=== PATIENT | male | born 1950 | race Caucasian/White ===

== ENCOUNTER 2017-05-22 07:44 | Inpatient (IN) | payer MEDICARE, OTHER ==
[2017-05-20 16:44] LABS: BASOPHILS % (AUTO) 0.6 % (0-1); EOSINOPHILS # (AUTO) 0.2 X10'3 (0-0.9); EOSINOPHILS % (AUTO) 2.2 % (0-6); LYMPHOCYTES # (AUTO) 2.1 X10'3 (1.1-4.8); LYMPHOCYTES % (AUTO) 29.1 % (21-51); MEAN CORPUSCULAR HEMOGLOBIN 31.9 PG (27.0-31.0); MEAN CORPUSCULAR HGB CONC 34.1 % (33.0-36.5); MEAN CORPUSCULAR VOLUME 93.7 FL (78-98); MEAN PLATELET VOLUME 8.1 FL (7.4-10.4); MONOCYTES # (AUTO) 0.6 X10'3 (0-0.9); NEUTROPHILS # (AUTO) 4.3 X10'3 (1.8-7.7); NEUTROPHILS % (AUTO) 59.1 % (42-75); PRE OP HEMATOCRIT 39.9 % (42.0-52.0); PRE OP HEMOGLOBIN 13.6 g/dL (14.0-17.9); PRE OP PLATELET COUNT 203 X10'3 (140-440); RED BLOOD COUNT 4.26 X10'6 (4.70-6.10); RED CELL DISTRIBUTION WIDTH 14.3 % (11.5-14.5)
[2017-05-20 16:53] LABS: HEMOGLOBIN A1C 5.7 % (4.5-6.2)
[2017-05-20 16:55] LABS: PRE OP INR 0.9 INR; PRE OP PROTIME 9.4 SECONDS (9.0-12.0)
[2017-05-20 17:05] LABS: ALBUMIN 3.8 G/DL (3.4-5.0); ALBUMIN/GLOBULIN RATIO 1.1 (1.1-1.5); ALKALINE PHOSPHATASE 76 IU/L (46-116); BLOOD UREA NITROGEN 21 MG/DL (7-18); BUN/CREATININE RATIO 17.5 (5.4-32.0); CALCIUM 9.1 MG/DL (8.5-10.1); CHLORIDE 107 MMOL/L (99-107); PRE OP ALT 27 U/L (30-65); PRE OP ANION GAP 6 (8-16); PRE OP AST 12 U/L (10-37); PRE OP BILIRUB, TOTAL 0.4 MG/DL (0.0-1.0); PRE OP GLUCOSE 93 MG/DL (70-104); PRE OP POTASSIUM 4.1 MMOL/L (3.4-5.1); PRE OP SODIUM 140 MMOL/L (135-145); TOTAL CARBON DIOXIDE 26.7 MMOL/L (24-32); TOTAL PROTEIN 7.2 G/DL (6.4-8.2); eGFR 60 ML/MIN
[2017-05-22] VITALS (18 sets, daily range): BP systolic 121–216; BP diastolic 70–132
[~2017-05-22] VITALS: Ht 180.3 cm; Wt 126.6 kg
[~2017-05-22 07:44] MED LIST: ATOR40TA PO; CITA40TA11 PO; DOCUMENT DATE & TIME OF BETA-BLOCKER PO ONE; LABE100T PO; LORA1TAB PO; METF750T2 PO; NORMAL SALINE IV ONE; TRAM50TA2 PO; TRANEXAMIC ACID IV ONE; VANCOMYCIN INJ 1000 MG in NORMAL SALINE 250ml IV.SOLN IV ONE; albuterol 2.5 MG/3 ML nebule NEB ONE; ceFAZolin 2gm in dextrose, iso 100 ML IV ONE; famotidine 20mg tablet PO ONE; ringers solution, lacted 1,000 ML IV SCH
[2017-05-22] MEDS ORDERED: ROPIVAcaine 0.5% (5mg/ml) 30ml vial ONE ×2 (08:33→09:51)
[2017-05-22] MEDS ORDERED: vancomycin 1,000mg inj ONE (08:33)
[2017-05-22] MEDS ORDERED: ketorolac trometh. 30mg/ml inj. ONE (08:33)
[2017-05-22] MEDS ORDERED: sevoflurane 250ml liquid IH ONE (10:08)
[2017-05-22] MEDS ORDERED: midazolam 2 mg/2 ml injection ONE ×3 (10:13→10:18)
[2017-05-22] MEDS ORDERED: fentaNYL/PF 50MCG/1 ML 2ML syringe ONE (10:14)
[2017-05-22] MEDS ORDERED: cloNIDine hcl/PF 100mcg/ml inj ONE (10:19)
[2017-05-22] MEDS ORDERED: ringers solution, lacted 1,000 ML IV SCH (11:23)
[2017-05-22] MEDS ORDERED: meperidine/PF 25mg/ml syringe IV PRN ×3 (11:25)
[2017-05-22] MEDS ORDERED: proCHLORperazine 10 MG/2 ml inj IV PRN (11:25)
[2017-05-22] MEDS ORDERED: ondansetron/PF 4mg/2ml inj IV PRN ×2 (11:25→12:50)
[2017-05-22] MEDS ORDERED: labetalol 5mg/ml 20ml inj. IV PRN (11:25)
[2017-05-22] MEDS ORDERED: neostigmine methylsulfate 1 MG/ML 10ml vial ONE (12:20)
[2017-05-22] MEDS ORDERED: propofol inj 20 ML IV ONE (12:20)
[2017-05-22] MEDS ORDERED: glycopyrrolate 0.2mg/ml inj ONE (12:20)
[2017-05-22] MEDS ORDERED: rocuronium 10mg/ml inj IV ONE (12:20)
[2017-05-22] MEDS ORDERED: oxyCODONE IR 5mg (immed. release) tablet PO PRN (12:50)
[2017-05-22] MEDS ORDERED: HYDROmorphone 1 mg/ml syringe IV PRN ×2 (12:50)
[2017-05-22] MEDS ORDERED: bisacodyl 10mg suppository rectal RC PRN (12:50)
[2017-05-22] MEDS ORDERED: magnesium hydroxide 30ml (MOM) UD suspension PO PRN (12:50)
[2017-05-22] MEDS ORDERED: acetaminophen 325mg tablet PO PRN (12:50)
[2017-05-22] MEDS ORDERED: diphenhydrAMINE 25mg capsule PO PRN ×2 (12:50)
[2017-05-22] MEDS ORDERED: acetaminophen 325mg tablet PO SCH (14:00)
[2017-05-22] MEDS: potassium cl 20mEq in 1/2 NS 1,000 ML IV SCH (14:04)
[2017-05-22] MEDS: ketorolac tromethamine 15mg/ml inj. IV SCH ×2 (15:06→19:33)
[2017-05-22] MEDS: cefazolin 1gm/NS 100mL 100 ML IV SCH ×2 (15:06→23:41)
[2017-05-22] MEDS: gabapentin 300mg capsule PO SCH ×2 (15:07→23:40)
[2017-05-22] MEDS: traMADol 50MG tablet PO SCH (19:33)
[2017-05-22] MEDS: metFORMIN 500mg tablet PO SCH (19:33)
[2017-05-22] MEDS: LORazepam 1 MG tablet PO PRN (19:34)
[2017-05-22] MEDS ORDERED: vancomycin/NS 1 GM ADD-VANTAGE 250 ML IV SCH (20:00)
[2017-05-22] MEDS ORDERED: sennosides 8.6mg tablet PO SCH (21:00)
[2017-05-22] MEDS ORDERED: atorvastatin 20mg tablet PO SCH (21:00)
[2017-05-23] MEDS: potassium cl 20mEq in 1/2 NS 1,000 ML IV SCH ×2 (00:30→06:36)
[2017-05-23] MEDS: oxyCODONE IR 5mg (immed. release) tablet PO PRN ×2 (00:56→05:59)
[2017-05-23 02:00] VITALS: BP 143/87
[2017-05-23] MEDS: ketorolac tromethamine 15mg/ml inj. IV SCH ×2 (02:00→07:36)
[2017-05-23 06:00] VITALS: BP 143/93
[2017-05-23] MEDS: LORazepam 1 MG tablet PO PRN (06:00)
[2017-05-23 06:19] LABS: BASOPHILS % (AUTO) 0.4 % (0-1); EOSINOPHILS # (AUTO) 0.1 X10'3 (0-0.9); EOSINOPHILS % (AUTO) 1.9 % (0-6); HEMATOCRIT 35.1 % (42.0-52.0); HEMOGLOBIN 11.8 g/dl (14.0-17.9); LYMPHOCYTES # (AUTO) 1.2 X10'3 (1.1-4.8); LYMPHOCYTES % (AUTO) 20.4 % (21-51); MEAN CORPUSCULAR HEMOGLOBIN 31.5 PG (27.0-31.0); MEAN CORPUSCULAR HGB CONC 33.5 % (33.0-36.5); MEAN CORPUSCULAR VOLUME 94.2 FL (78-98); MEAN PLATELET VOLUME 8.5 FL (7.4-10.4); MONOCYTES # (AUTO) 0.6 X10'3 (0-0.9); MONOCYTES % (AUTO) 10.6 % (2-12); NEUTROPHILS # (AUTO) 3.8 X10'3 (1.8-7.7); NEUTROPHILS % (AUTO) 66.7 % (42-75); PLATELET COUNT 139 X10'3 (140-440); RED BLOOD COUNT 3.73 X10'6 (4.70-6.10); RED CELL DISTRIBUTION WIDTH 14.3 % (11.5-14.5); WHITE BLOOD COUNT 5.7 X10'3 (4.5-11.0)
[2017-05-23 06:46] LABS: ANION GAP 7 (8-16); CHLORIDE 105 MMOL/L (99-107); POTASSIUM 4.4 MMOL/L (3.5-5.1); SODIUM 138 MMOL/L (135-145)
[2017-05-23] MEDS: metFORMIN 500mg tablet PO SCH (07:36)
[2017-05-23] MEDS: gabapentin 300mg capsule PO SCH (07:36)
[2017-05-23] MEDS: traMADol 50MG tablet PO SCH (07:37)
[2017-05-23] MEDS ORDERED: citalopram 20mg tablet PO SCH (08:00)
[2017-05-23] MEDS ORDERED: labetalol 100mg tablet PO SCH (08:00)
[2017-05-23] MEDS ORDERED: aspirin 325mg tablet PO SCH (08:30)
[2017-05-23 10:28] VITALS: BP 125/77
[2017-05-23] MEDS ORDERED: ASPI-1 PO (11:42)
[2017-05-24] MEDS ORDERED: celeCOXIB 100mg capsule PO SCH (08:00)
[2017-05-24] MEDS ORDERED: acetaminophen 325mg tablet PO PRN (12:50)
== END 2017-05-23 12:25 | disposition home or self-care (01) | DRG 483 ==
LOC: PAS IN 07:44 → EDSTATUS 09:45 → ORTHO 4S 13:57
PROVIDERS: ADMIT Orthopaedic Surgery; ATTEND Orthopaedic Surgery
PROC: 0LS30ZZ Reposition Right Upper Arm Tendon, Open Approach (ICD-10-PCS; 2017-05-22)
PROC: 3E0T3BZ Introduction of Anesthetic Agent into Peripheral Nerves and Plexi, Percutaneous Approach (ICD-10-PCS; 2017-05-22)
PROC: 0RRJ00Z Replacement of Right Shoulder Joint with Reverse Ball and Socket Synthetic Substitute, Open Approach (ICD-10-PCS; principal; 2017-05-22 10:08)
DX: M19.011 Primary osteoarthritis, right shoulder (principal); D62 Acute posthemorrhagic anemia; E11.9 Type 2 diabetes mellitus without complications; E78.5 Hyperlipidemia, unspecified; E66.9 Obesity, unspecified; M75.41 Impingement syndrome of right shoulder; M75.21 Bicipital tendinitis, right shoulder; M54.40 Lumbago with sciatica, unspecified side; F32.9 Major depressive disorder, single episode, unspecified; F41.9 Anxiety disorder, unspecified; I10 Essential (primary) hypertension; M65.811 Other synovitis and tenosynovitis, right shoulder; M75.121 Complete rotator cuff tear or rupture of right shoulder, not specified as traumatic; F17.210 Nicotine dependence, cigarettes, uncomplicated; Z79.899 Other long term (current) drug therapy; Z79.84 Long term (current) use of oral hypoglycemic drugs; Z68.38 Body mass index [BMI] 38.0-38.9, adult
CPT/HCPCS: 36415; 71046; 80051; 80053; 82948; 83036; 85025; 85610; 85730; 87070; 97110; 97116; 97162; 97530; A4565; A7000; J0690; J0735; J1885; J2175; J2250; J2270; J2704; J2710; J2795; J3010; J3370; J3490; J7030; J7120

== ENCOUNTER 2021-09-11 06:58 | Day surgery (SDC) | payer MEDICARE, OTHER ==
[2021-09-11] VITALS (11 sets, daily range): BP systolic 122–160; BP diastolic 83–100
[~2021-09-11] VITALS: Ht 177.8 cm; Wt 123.6 kg
[~2021-09-11 06:58] MED LIST changes: +ASPI-1 PO; -CITA40TA11 PO; +CITA40TA32 PO; -DOCUMENT DATE & TIME OF BETA-BLOCKER PO ONE; +FERR325T28 PO; -LABE100T PO; +LABE100T5 PO; -METF750T2 PO; +METF750T46 PO; -NORMAL SALINE IV ONE; -TRANEXAMIC ACID IV ONE; -VANCOMYCIN INJ 1000 MG in NORMAL SALINE 250ml IV.SOLN IV ONE; -albuterol 2.5 MG/3 ML nebule NEB ONE; -ceFAZolin 2gm in dextrose, iso 100 ML IV ONE; -famotidine 20mg tablet PO ONE; -ringers solution, lacted 1,000 ML IV SCH
[2021-09-11] MEDS ORDERED: DEXTROSE 15 GM of carb/4 tabs (each vial/BOTTLE has 4 tablets) PO PRN ×2 (07:35)
[2021-09-11] MEDS ORDERED: LORazepam 0.5 MG tablet PO PRN (07:35)
[2021-09-11] MEDS ORDERED: normal saline 1,000 ML IV SCH (07:35)
[2021-09-11] MEDS ORDERED: insulin Lispro (HumaLOG) vial - multi-dose SQ SCH (07:35)
[2021-09-11] MEDS ORDERED: dextrose 50%-water 50ml dispensing syringe IV PRN ×2 (07:35)
[2021-09-11] MEDS ORDERED: glucagon, human recombinant 1mg kit SUBCUT PRN (07:35)
[2021-09-11] MEDS ORDERED: MESSAGE TO PHARMACY PO ONE (07:35)
[2021-09-11] MEDS ORDERED: diphenhydrAMINE 25mg capsule PO PRN (07:35)
[2021-09-11] MEDS ORDERED: nitroGLYCERIN 0.4mg SUBLingual tab SL PRN ×2 (07:35→10:55)
[2021-09-11] MEDS ORDERED: IBUP-1985 PO (07:52)
[2021-09-11] MEDS ORDERED: ATRIN INH (07:52)
[2021-09-11] MEDS ORDERED: DOXA1TAB2 PO (07:52)
[2021-09-11] MEDS ORDERED: GABA-530 PO (07:52)
[2021-09-11] MEDS ORDERED: LOSA50TA3 PO (07:52)
[2021-09-11] MEDS ORDERED: METF-900 PO (07:52)
[2021-09-11] MEDS ORDERED: CYCL-1 PO (07:52)
[2021-09-11] MEDS ORDERED: AMLO2.5T2 PO (07:52)
[2021-09-11] MEDS ORDERED: LIDOCAINE 1% w/preservative (10 MG/ML) inj. 10mL VIAL ONE (09:00)
[2021-09-11] MEDS ORDERED: midazolam 1 mg/ML 2ml injection ONE ×2 (09:00→09:33)
[2021-09-11] MEDS ORDERED: fentaNYL/PF 50MCG/1 ML 2ML syringe ONE (09:00)
[2021-09-11] MEDS ORDERED: iohexol 350 MG/ML 50ML vial IV ONE (09:01)
[2021-09-11] MEDS ORDERED: iohexol 350MG/ML 100ml bottle IV ONE (09:03)
--- NOTE | 2021-09-11 10:25 | NUR ---
Pt returned to unit from procedure. VS stable as charted. Angioseal to right groin. DRSG CD&I, no s/s of bleeding or infection. Pt requesting [place] soda and will be brought to bedside. Will continue to monitor.
[2021-09-11] MEDS ORDERED: HYDROcodone/acetaminophen 10/325mg tab PO PRN (10:55)
[2021-09-11] MEDS ORDERED: normal saline 1000ml 1,000 ML IV SCH (10:55)
[2021-09-11] MEDS ORDERED: HYDROcodone/acetaminophen 5mg/325mg tablet PO PRN (10:55)
[2021-09-11] MEDS ORDERED: OXAZEpam 15mg capsule PO PRN (10:55)
[2021-09-11] MEDS ORDERED: proCHLORperazine 10 MG/2 ml inj IV PRN (10:55)
[2021-09-11] MEDS ORDERED: ondansetron/PF 4mg/2ml inj IV PRN (10:55)
--- NOTE | 2021-09-11 11:20 | NUR ---
Pt ate 100% of sandwich tray. 250 ml oral fluid intake
--- NOTE | 2021-09-11 11:50 | NUR ---
auto technician mechanic at bedside.
--- NOTE | 2021-09-11 12:09 | NUR ---
Pt voided 350 ml dark yellow, clear.
--- NOTE | 2021-09-11 14:02 | NUR ---
Pt ate 100% of breakfast tray.
[2021-09-11] MEDS ORDERED: insulin glargine (Lantus) pen - multi-dose SQ SCH (21:00)
== END 2021-09-11 17:04 | disposition home or self-care (01) ==
LOC: SSTAY O 06:58
PROVIDERS: ATTEND Internal Medicine Cardiovascular Disease
DX: R94.39 Abnormal result of other cardiovascular function study (principal); I25.10 Atherosclerotic heart disease of native coronary artery without angina pectoris; I35.0 Nonrheumatic aortic (valve) stenosis; E11.9 Type 2 diabetes mellitus without complications; I10 Essential (primary) hypertension; E78.5 Hyperlipidemia, unspecified; M47.9 Spondylosis, unspecified; Z72.89 Other problems related to lifestyle; Z79.899 Other long term (current) drug therapy; Z79.84 Long term (current) use of oral hypoglycemic drugs; Z87.891 Personal history of nicotine dependence
CPT/HCPCS: 82948; 93005; 93306; 93454; 93567; 99152; 99153; C1760; C1769; J1644; J1815; J2250; J3010; J7030; Q0163; Q9967; A4620; A6258